=== PATIENT | male | born 2000 | race Caucasian/White ===

== ENCOUNTER 2023-01-17 18:45 | Emergency (ER) | payer BC ==
[~2023-01-17] VITALS: Ht 182.9 cm; Wt 63.6 kg
[2023-01-17 18:52] VITALS: TEMP 98
[2023-01-17 20:00] VITALS: BP 147/81; PULSE 81
== END 2023-01-17 20:00 | disposition home or self-care (01) ==
LOC: COL.ER 18:45
DX: R09.A2 Foreign body sensation, throat (principal)